=== PATIENT | female | born 1950 | race Caucasian/White ===

== ENCOUNTER 2019-06-16 16:22 | Observation (INO) | payer MEDICARE, MEDICAID ==
--- NOTE | 2019-06-16 16:36 | Emergency Department Record ---
History of Present Illness - General Chief Complaint: Hypertension Stated Complaint: HIGH BLOOD PRESSURE Time Seen by Provider: 06/16/19 16:27 Source: Patient Mode of Arrival: Ambulatory Limitations: No limitations - History of Present Illness Initial Comments: The patient is here due to having an appointment in the [facility] today, and her blood pressure was 180's/100's so she was sent to the ER for evaluation. The patient states she has a hx of a L Nephrectomy for kidney CA and a R adrenal mass that was removed in the past. She has not seen a doctor in 2 years and was over to the [facility] for a 1st visit and to get her anxiety and depression medicines restarted. She denies any abdominal pain, nausea, vomiting, CP, SOB, DAVIS's, or visual changes. Additionally the patient has had intermittent dysuria recently. MD Complaint: Other Onset/Timin -: Days(s) Improves With: Nothing Worsens With: Nothing Associated Symptoms: Denies other symptoms - [place] Coma Scale Eye Response: (4) Open spontaneously Motor Response: (6) Obeys commands Verbal Response: (5) Oriented Benji Total: 15 - Related Data Allergies Allergy/AdvReac Type Severity Reaction Status Date / Time lorazepam Allergy BEHAVIORAL Verified 06/16/19 16:27 CHANGES propofol Allergy ALTERED Verified 06/16/19 16:27 MENTAL STATUS Travel Screening - Travel/Exposure Within Last 30 Days Have you traveled within the last 30 days?: No Review of Systems Constitutional: Denies: Chills, Fever Eyes: Denies: Eye discharge ENT: Denies: Congestion Respiratory: Denies: Cough, Dyspnea Cardiovascular: Denies: Arrhythmia, Chest pain Endocrine: Denies: Fatigue Gastrointestinal: Denies: Nausea Genitourinary: Reports: Dysuria Musculoskeletal: Denies: Back pain Skin: Denies: Bruising Past Medical History - SOCIAL HISTORY Smoking Status: Light tobacco smoker (<10/day) Alcohol Use: None Drug Use: None - RESPIRATORY Hx Respiratory Disorders: Yes Hx Asthma: Yes (anxiety induced) - CARDIOVASCULAR Hx Cardio Disorders: No - NEURO Hx Neuro Disorders: No - GI Hx GI Disorders: No - Hx Genitourinary Disorders: No - ENDOCRINE Hx Endocrine Disorders: No - MUSCULOSKELETAL Hx Musculoskeletal Disorders: No - PSYCH Hx Psych Problems: No - HEMATOLOGY/ONCOLOGY Hx Hematology/Oncology Disorders: Yes Hx Cancer: Yes (renal) Family Medical History Any Significant Family History?: No Physical Exam - General General Appearance: Alert, Oriented x3, Cooperative, No acute distress - Head Head exam: Atraumatic, Normocephalic - Eye Eye exam: Normal appearance, PERRL, EOMI - ENT Throat exam: Normal inspection. negative: Tonsillar erythema, Tonsillar exudate - Neck Neck exam: Normal inspection, Full ROM. negative: Tenderness - Respiratory Respiratory exam: Normal lung sounds bilaterally. negative: Respiratory distress - Cardiovascular Cardiovascular Exam: Regular rate, Normal rhythm, Normal heart sounds. negative: Diastolic murmur, Systolic murmur - GI/Abdominal GI/Abdominal exam: Soft, Normal bowel sounds. negative: Tenderness - Extremities Extremities exam: Normal inspection, Full ROM, Normal capillary refill. negative: Tenderness - Neurological Neurological exam: Alert, Normal gait. negative: Abnormal gait, Motor sensory deficit - Psychiatric Psychiatric exam: negative: Anxious Course Vital Signs 06/16/19 16:24 Temperature 97.9 F Pulse Rate 86 Respiratory 18 Rate Blood Pressure 241/138 Pulse Ox 96 - Reevaluation(s) Reevaluation #1: The patient is doing very well at this time. Her BP is improved and she denies any pain or discomfort. I did discuss the very elevated BP's and did recommend an overnight stay for BP monitoring and the patient did agree. I then did discuss the case with Jasmin (MARKETING MANAGER) and she does accept the admission for Dr. Menon. 06/16/19 17:51 Medical Decision Making - Data Complexity MDM Data: Labs Ordered and/or Reviewed, X-Ray Ordered and/or Reviewed, EKG Ordered and/or Reviewed - Lab Data Result diagrams: 06/16/19 16:40 06/16/19 16:40 - EKG Data -: EKG Interpreted by Me EKG: No Acute Changes (LVH.) - Radiology Data Radiology results: Report reviewed (Abd CT: Neg for acute changes. L Nephrectomy and R Adrenalectomy as per hx.) Disposition Disposition: Admit Clinical Impression: Hypertensive urgency Disposition: Still a Patient at [facility] Decision to Admit: Admit from ER Decision to Admit Date: 06/16/19 Decision to Admit Time: 17:54 Accepting Physician: Lynsey Time Discussed w/Accepting Physician: 17:54 Condition: (2) Stable Forms: Patient Portal Access Time of Disposition: 17:54 Quality - Quality Measures Quality Measures: N/A - Blood Pressure Screening View Details: Yes Does Patient Have Any of the Following: No Blood Pressure Classification: Hypertensive Reading Systolic Measurement: 241 Diastolic Measurement: 138 Screening for High Blood Pressure: < First Hypertensive BP, F/U Documented > [G8950] First Hypertensive Follow-up Interventions: Referral to alternative/primary care provider.
[2019-06-16 16:47] LABS: ABSOLUTE NEUTROPHIL COUNT 9.03; BASO % 0.7 % (0-6); EOS % 2.3 % (0-6); GRAN % 53.1 % (47-80); HEMATOCRIT 45.3 % (35.0-47.0); LYMPH % 33.8 % (16-45); MEAN CELL VOLUME 86.9 fl (81-97); MEAN CORPUSCULAR HEMOGLOBIN 28.8 pg (27-33); MEAN CORPUSCULAR HGB CONC 33.1 g/dl (32-36); MEAN PLATELET VOLUME 9.8 fl (7.4-10.4); MONO % 10.1 % (0-9); PLATELET COUNT 439 K/uL (130-400); RED BLOOD COUNT 5.21 M/uL (3.80-5.40); RED CELL DISTRIBUTION WIDTH 16.1 % (11.5-14.5)
[2019-06-16 16:58] LABS: BLOOD UREA NITROGEN 17 mg/dL (8-23)
[2019-06-16 16:59] LABS: CREATININE 0.8 mg/dL (0.5-0.9); EST GLOMERULAR FILTRATION RATE > 60 mL/min; TOTAL PROTEIN 7.2 g/dL (6.6-8.7)
[2019-06-16 17:01] LABS: GLUCOSE,RANDOM 89 mg/dL (74-109)
[2019-06-16 17:04] LABS: ALB/GLOB RATIO 1.7 (1.1-1.8); ALBUMIN 4.5 g/dL (4.0-5.0); ALKALINE PHOSPHATASE 155 U/L (35-104); ALT/SGPT 16 U/L (<33); AST/SGOT 21 U/L (10.0-35.0)
[2019-06-16 17:30] LABS: URINE APPEARANCE CLEAR; URINE BILIRUBIN NEGATIVE (NEGATIVE); URINE BLOOD NEGATIVE (NEGATIVE); URINE COLOR YELLOW; URINE GLUCOSE (UA) NEGATIVE (NEGATIVE); URINE KETONE NEGATIVE (NEGATIVE); URINE LEUKOCYTE ESTERASE SMALL (NEGATIVE); URINE NITRITE NEGATIVE (NEGATIVE); URINE PROTEIN NEGATIVE (NEGATIVE); URINE UROBILINOGEN 0.2 E.U./dL (0.20 - 1.00)
[2019-06-16] MEDS ORDERED: AMLODIPINE BESYLATE 5MG TAB PO ONE (17:30)
[2019-06-16 17:35] LABS: URINE EPITHELIAL CELLS 0 - 2 (FEW); URINE RBC NONE SEEN (NONE SEEN); URINE WBC 16 - 20 (0-2/hpf)
[2019-06-16] MEDS ORDERED: CEPHALEXIN 500 MG CAPSULE PO STA (17:53)
[2019-06-16] MEDS ORDERED: ACETAMINOPHEN 325 MG TAB PO PRN (18:48)
[2019-06-16] MEDS ORDERED: HYDRALAZINE 20MG/ML VIAL IM ONE (19:06)
[2019-06-16] MEDS ORDERED: ALPRAZOLAM 0.25 MG TABLET PO ONE (19:07)
[2019-06-16] MEDS: ESCITALOPRAM 10 MG TABLET PO SCH (19:25)
[2019-06-16] MEDS ORDERED: HYDRALAZINE HCL 25 MG TABLET PO SCH (22:00)
[2019-06-16] MEDS: CEPHALEXIN 500 MG CAPSULE PO SCH (22:08)
[2019-06-17] MEDS: METOPROLOL TART 25 MG TABLET PO SCH ×2 (05:28→08:32)
--- NOTE | 2019-06-17 08:01 | CT SCAN REPORT ---
EXAM: CT SCAN OF THE ABDOMEN AND PELVIS WITHOUT CONTRAST HISTORY: ELEVATED WHITE BLOOD CELL COUNT. HISTORY OF RENAL CANCER. ELEVATED BLOOD PRESSURE. TECHNIQUE: Standard CT imaging of the abdomen and pelvis was performed without contrast. Comparison: None. FINDINGS: Emphysematous changes are present at both lung bases. Mild atelectasis or scarring is also present at both lung bases. The liver is normal. Calcified stones are present dependently within the gallbladder. There is no evidence for acute cholecystitis. There is no biliary ductal dilatation. The pancreas is normal. 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 A small accessory spleen remains. There is a low density mass within the left adrenal gland measuring 1.6 x 2.4 cm. This likely represents an adenoma. The right adrenal gland is surgically absent. The left kidney is surgically absent. The renal bed appears normal. The right kidney is normal in appearance. There is no hydronephrosis or obstructing calculus. Atherosclerotic calcifications are present within the aorta. There is no aneurysm. There is no retroperitoneal lymphadenopathy. Scattered diverticula are present within the sigmoid colon with no evidence for acute diverticulitis. A few other scattered diverticula are present throughout the remainder of the colon. The appendix is surgically absent. The small bowel loops are normal in caliber. There is no pneumoperitoneum or ascites. A 3 cm cyst is present within the left ovary. Tubal ligation clips are present bilaterally. The uterus and adnexa are otherwise normal. The urinary bladder is unremarkable. There is no ventral hernia. There are no acute osseous abnormalities. IMPRESSION: 1. NO ACUTE INTRAABDOMINAL PATHOLOGY. 2. COLONIC DIVERTICULOSIS WITH NO DIVERTICULITIS. 3. CHOLELITHIASIS WITH NO EVIDENCE FOR ACUTE CHOLECYSTITIS. 4. PROBABLE LEFT ADRENAL ADENOMA MEASURING 1.6 X 2.4 CM. 5. 3 CM LEFT OVARIAN CYST. 6. POST SURGICAL CHANGES ABOVE. JOB NUMBER: [id number] MTDD
--- NOTE | 2019-06-17 08:19 | Discharge Note ---
VTE H&P Assessment - Risk for VTE Risk for VTE: Yes Risk Level: Moderate Risk Assessment Date: 06/17/19 Risk Assessment Time: 08:15 VTE Orders Placed or Will Be Placed: Yes Discharge Medications - Discharge Medications Prescriptions: Cephalexin [Keflex] 500 mg PO TID #21 capsule Escitalopram Oxalate [Lexapro] 10 mg PO DAILY #30 tab Amlodipine Besylate [Norvasc] 5 mg PO DAILY #30 tab Metoprolol Succinate [Toprol Xl] 25 mg PO DAILY #30 tab.er.24h Home Medications: Ambulatory Orders Acetaminophen [Tylenol 325Mg] 650 mg PO Q6H PRN tablet 06/17/19 [Last Taken Unknown] Amlodipine Besylate [Norvasc] 5 mg PO DAILY #30 tab 06/17/19 [Last Taken Unknown] Cephalexin [Keflex] 500 mg PO TID #21 capsule 06/17/19 [Last Taken Unknown] Escitalopram Oxalate [Lexapro] 10 mg PO DAILY #30 tab 06/17/19 [Last Taken Unknown] Metoprolol Succinate [Toprol Xl] 25 mg PO DAILY #30 tab.er.24h 06/17/19 [Last Taken Unknown] Discharge Note - Date Date of Discharge Note: 06/17/19 Condition: (1) Good Additional Instructions: follow up with Dr Santizo in 7 days check BP three times a week at [facility] and write the numbers down stop caffeine and tobacco use keflex three times a day for UTI for one more week start lexapro 10 mg per day for anxiety start amlodipine 5 mg per day start toprol xl 25 mg per day and start this today 06/17/2019 exercise and avoid salt Forms: Patient Portal Access
[2019-06-17] MEDS ORDERED: METOPROLOL TART 25 MG TABLET PO SCH (09:00)
[2019-06-17] MEDS: CEPHALEXIN 500 MG CAPSULE PO SCH (09:11)
[2019-06-17] MEDS: ESCITALOPRAM 10 MG TABLET PO SCH (09:11)
[2019-06-17] MEDS ORDERED: METOPROLOL SUCC 25 MG TAB.ER PO SCH (10:00)
[2019-06-17] MEDS ORDERED: ENOXAPARIN 40 MG/0.4 ML SYR SQ SCH (10:00)
[2019-06-17] MEDS ORDERED: AMLODIPINE BESYLATE 5MG TAB PO SCH (10:00)
--- NOTE | 2019-06-17 14:01 | History and Physical Report ---
DATE OF ADMISSION: 06/16/2019 CHIEF COMPLAINT/HISTORY OF CHIEF COMPLAINT: Hypertension. HISTORY OF PRESENT ILLNESS: This 60-year-old female presented to Dr. Santizo's office, had not been seen for 2 years in the office because of anxiety and depression. It was noted that she had a very high blood pressure in the office and sent to the emergency department for hypertensive urgency. Given 5 mg of Norvasc in the ER, admitted to the floor as an observation patient with a blood pressure of 241/138. It was also noted that she had WBCs in her urine, she was told she had a urinary tract infection, started on Keflex. She had no headache, no chest pain, no difficulty breathing, no symptoms at all except anxiety and depression. She states there is no trigger for this. MEDICAL HISTORY: She has anxiety and depression, asthma, COPD, smokes cigarettes, renal cancer. SURGICAL HISTORY: An adrenal tumor removed in 2012, not cancerous, in [place], [place] at the [facility]. She had her left kidney removed also in 2012 that was positive for cancer. At that time, the splenectomy was nicked and she had a hemoperitoneum with an evacuation of the blood and spleen in 2012. Also, she has had an appendectomy, tubal ligation, neck surgery with disc in 2000. CURRENT MEDICATIONS: None. Occasional [id number] Aleve p.r.n. ALLERGIES: ATIVAN caused her an adverse reaction where she had behavioral changes, PROPOFOL caused altered mental status changes. FAMILY PSYCHOSOCIAL HISTORY: No significant family history. She does smoke 1/2 pack of cigarettes a day. No alcohol or drug use. When she was in her 20s she enjoyed speed, but none since 30 years of age. SYSTEMS REVIEW: HEENT: No upper respiratory infections. No cough, cold, or congestion. No headache or dizziness. CARDIOVASCULAR: No chest pain, palpitations, or arrhythmias. RESPIRATORY: No cough, cold, or congestion. GASTROINTESTINAL: No nausea, vomiting, or diarrhea, black stools or bloody stools. GENITOURINARY: No dysuria, hematuria, or frequency or burning on urination. MUSCULOSKELETAL: No joint or bone abnormalities. NEUROLOGIC: No CVA paralysis or paresthesias. REFRIGERATOR GLAZIER HISTORY: Deferred. No lumps in her breasts or vaginal bleeding. ENDOCRINE: No diabetes or thyroid disease. She did have renal cancer with adrenal mass removed. INTEGUMENT: No rash, ulcer, change in moles, no yellow skin. PHYSICAL EXAMINATION: GENERAL: Height is 5 feet 5 inches, weight is 161 pounds. VITAL SIGNS: Temperature 97.9, blood pressure 241/138, respiratory rate 18, pulse ox is 96% on room air. HEENT: Pupils are equal, round, and reactive to light and accomodation. Extraocular muscles are intact. Throat is clear, nose is clear. Tympanic membranes are quinones. NECK: Supple. No jugular venous distention, no hepatojugular reflux, no carotid bruits, thyroid is smooth. CARDIOVASCULAR: Regular rate and rhythm without murmurs, clicks, rubs, or gallops. RESPIRATORY: Clear to auscultation and percussion. ABDOMEN: Soft, nontender, no hepatosplenomegaly, no masses, no tenderness. Bowel sounds are active. No bruits. EXTREMITIES: No pitting edema, no cyanosis, no clubbing. Full range of motion. Peripheral pulses are good. BREASTS: Deferred. GYNECOLOGIC: Deferred. RECTAL: Deferred. NEUROLOGIC: Cranial nerves II through XII intact. No gross defects in sensation. Normal strength, normal deep tendon reflexes equal bilaterally. Babinski's negative. MENTAL STATUS: Alert and oriented x3. IMPRESSION: 1. Hypertensive urgency. 2. Anxiety and depression. PLAN: Start hydralazine and we will add other medications as her blood pressure comes down. MTDD
--- NOTE | 2019-06-17 15:21 | Discharge Summary ---
DATE: 06/17/2019 at 8:25 a.m. DISCHARGE DIAGNOSES: 1. Hypertension. 2. Tobacco use/chronic obstructive pulmonary disease. 3. History of renal cancer. 4. Urinary tract infection. Urine revealed WBCs only. Culture is pending. She has symptoms of burning on urination. ATTENDING PHYSICIAN: Woody Rodriguez DO REASON FOR HOSPITALIZATION: This 68-year-old female had not been to a doctor for 2 years, went into Dr. Santizo's office because of anxiety and depression, looking for anxiety and depression medication. Her blood pressure was very high, sent to the emergency department for hypertensive urgency. She had no symptoms, no headache, no chest pain, no dyspnea but she was anxious. In the emergency department, she was given 5 of amlodipine and admitted to the hospital as an observation patient for further treatment. Her blood pressure was 241/138. SIGNIFICANT FINDINGS: EKG revealed no acute changes, normal sinus rhythm, left ventricular hypertrophy, left atrial enlargement. She also had a CT of the abdomen and pelvis without contrast. No acute intraabdominal pathology. Colonic diverticulosis with no diverticulitis. cholelithiasis with no evidence of acute cholecystitis. Probable left adrenal adenoma measuring 1.6 x 2.4 cm. A 3 cm left ovarian cyst. Postsurgical changes. She had her kidney removed because of kidney cancer. The right adrenal gland is surgically absent. The left kidney is surgically absent. Laboratory: WBC 17,000, hemoglobin 15, potassium 4.2, sodium 139, BUN 17, creatinine 0.8. Urine reveals 16-20 WBCs, no RBCs, 0-2 epithelial cells, no bacteria. THERAPY PROVIDED: The patient was given hydralazine 20 mg IM and her pressure came down nicely. She was also then started on Lopressor 25 mg at 5 a.m. and we will send her home on Toprol because it is a once-a-day medication. Norvasc once a day. Lexapro was given to her in the hospital 10 mg and Xanax 0.5 mg in the hospital also was given to her as a one-time dose. HOSPITAL COURSE: Uneventful. Her blood pressure is running at the time of discharge 151/76. Explained to her blood pressure will probably go up. It will have to be titrated with IV and oral medication but it is safe to do this at point with these medications onboard. She is not going to get into trouble. She needs to follow up with Dr. Santizo within 1 week to adjust her outpatient oral hypertensive medications. CONDITION ON DISCHARGE: Much improved. This is an observation patient. DISCHARGE INSTRUCTIONS: Follow up with Dr. Santizo in 7 days. Norvasc (amlodipine) 5 mg daily, Toprol-XL 25 mg daily, Lexapro 10 mg daily, Keflex 500 mg t.i.d. for 7 days. Fluids. Stop caffeine, stop tobacco use, avoid salt. Exercise half an hour briskly every day walking. Try to use behavioral modification to help her blood pressure modification. She was given one shot of Lovenox in the hospital to prevent DVTs. ANTOINE
== END 2019-06-17 10:00 | disposition home or self-care (01) ==
LOC: ER 16:22 → MEDSURG 18:13
PROVIDERS: ADMIT Internal Medicine; ATTEND Internal Medicine
DX: I10 Essential (primary) hypertension (principal); N39.0 Urinary tract infection, site not specified; Z90.5 Acquired absence of kidney; J44.9 Chronic obstructive pulmonary disease, unspecified; Q89.1 Congenital malformations of adrenal gland; F17.210 Nicotine dependence, cigarettes, uncomplicated; E27.9 Disorder of adrenal gland, unspecified; Z85.528 Personal history of other malignant neoplasm of kidney; F41.8 Other specified anxiety disorders; J45.909 Unspecified asthma, uncomplicated
CPT/HCPCS: 74176; 80053; 81001; 85025; 93005; 93010; 96372; 99217; 99220; 99285; J1650